=== PATIENT | female | born 1935 | race Asian ===

== ENCOUNTER → 2017-01-14 | Outpatient (CLI) | payer MEDICARE, MEDICAID | END | disposition home or self-care (01) | LOC: RADPV 14:22 | PROVIDERS: ATTEND Internal Medicine Cardiovascular Disease | DX: I08.0 Rheumatic disorders of both mitral and aortic valves (principal) | CPT/HCPCS: 93306 ==

== ENCOUNTER 2017-01-28 05:50 | Day surgery (SDC) | payer MEDICARE, MEDICAID ==
[~2017-01-28] VITALS: Ht 154.9 cm; Wt 54.5 kg
[~2017-01-28 05:50] MED LIST: INSLAN SQ; PANT40TA25 GT; SODIUM CHLORIDE 0.9% 1,000 ML IV ONE
[2017-01-28] MEDS ORDERED: METOCLOPRAMIDE HCL 5 MG/ML 2 ML VIAL IVP ONE (05:51)
[2017-01-28] MEDS ORDERED: PROPOFOL 1% 20 ML VIAL IVP ONE (05:51)
[2017-01-28] MEDS ORDERED: NEOSTIGMINE METHYLSULFATE 1 MG/ML 10 ML VIAL IVP ONE (05:51)
[2017-01-28] MEDS ORDERED: LIDOCAINE HCL/PF 2% 5 ML VIAL INJ ONE (05:51)
[2017-01-28] MEDS ORDERED: SODIUM CHLORIDE 0.9% 1,000 ML IV ONE (06:02)
[2017-01-28 06:32] LABS: GLUCOSE,POINT OF CARE 162 MG/DL (70-110)
[2017-01-28] MEDS ORDERED: FentaNYL CITRATE-PF 100 MCG/2 ML VIAL IVP PRN (07:45)
[2017-01-28] MEDS ORDERED: OXYGEN THERAPY IH SCH (08:00)
== END 2017-01-28 09:05 | disposition home or self-care (01) ==
LOC: SURGERY 05:50
PROVIDERS: ATTEND Specialist
DX: K91.89 Other postprocedural complications and disorders of digestive system (principal); D64.9 Anemia, unspecified; E78.5 Hyperlipidemia, unspecified; E11.9 Type 2 diabetes mellitus without complications; I10 Essential (primary) hypertension; M54.9 Dorsalgia, unspecified; Z79.4 Long term (current) use of insulin; Z90.3 Acquired absence of stomach [part of]
CPT/HCPCS: 43249; 82962; 93005; J2704; J2765; J3490; J7030

== ENCOUNTER 2017-02-11 05:32 | Day surgery (SDC) | payer MEDICARE, MEDICAID ==
[~2017-02-11] VITALS: Ht 152.4 cm; Wt 55.0 kg
[~2017-02-11 05:32] MED LIST changes: -SODIUM CHLORIDE 0.9% 1,000 ML IV ONE
[2017-02-11] MEDS ORDERED: SODIUM CHLORIDE 0.9% 1,000 ML IV ONE ×2 (05:41→06:00)
[2017-02-11 09:20] LABS: GLUCOSE,POINT OF CARE 126 MG/DL (70-110)
[2017-02-11] MEDS ORDERED: ONDANSETRON HCL 4 MG/2 ML VIAL IVP ONE (12:00)
[2017-02-11] MEDS ORDERED: EPHEDrine SULFATE 50 MG/ML VIAL IM ONE (12:00)
[2017-02-11] MEDS ORDERED: PROPOFOL 1% 20 ML VIAL IVP ONE (12:00)
[2017-02-11] MEDS ORDERED: LIDOCAINE HCL/PF 2% 5 ML VIAL INJ ONE (12:00)
[2017-02-11] MEDS ORDERED: METOCLOPRAMIDE HCL 5 MG/ML 2 ML VIAL IVP ONE (12:00)
== END 2017-02-11 08:55 | disposition home or self-care (01) ==
LOC: SURGERY 05:32
PROVIDERS: ATTEND Specialist
DX: K91.89 Other postprocedural complications and disorders of digestive system (principal); I10 Essential (primary) hypertension; D64.9 Anemia, unspecified; E11.9 Type 2 diabetes mellitus without complications; E78.00 Pure hypercholesterolemia, unspecified; Z90.3 Acquired absence of stomach [part of]; Z98.890 Other specified postprocedural states; Z87.19 Personal history of other diseases of the digestive system; Y83.8 Other surgical procedures as the cause of abnormal reaction of the patient, or of later complication, without mention of misadventure at the time of the procedure
CPT/HCPCS: 43220; 82962; J2405; J2704; J2765; J3490 ×2; J7030

== ENCOUNTER 2017-03-11 05:30 | Day surgery (SDC) | payer MEDICARE, MEDICAID ==
[~2017-03-11] VITALS: Ht 152.4 cm; Wt 55.0 kg
[2017-03-11] MEDS ORDERED: SODIUM CHLORIDE 0.9% 1,000 ML IV ONE ×2 (05:41→06:00)
[2017-03-11 06:32] LABS: GLUCOSE,POINT OF CARE 152 MG/DL (70-110)
[2017-03-11] MEDS ORDERED: METOCLOPRAMIDE HCL 5 MG/ML 2 ML VIAL IVP ONE (12:00)
[2017-03-11] MEDS ORDERED: PROPOFOL 1% 20 ML VIAL IVP ONE (12:00)
[2017-03-11] MEDS ORDERED: LIDOCAINE HCL/PF 2% 5 ML VIAL INJ ONE (12:00)
[2017-03-11] MEDS ORDERED: ONDANSETRON HCL 4 MG/2 ML VIAL IVP ONE (12:00)
[2017-03-11] MEDS ORDERED: GLYCOPYRROLATE 0.2 MG/ML VIAL IVP ONE (12:00)
== END 2017-03-11 08:55 | disposition home or self-care (01) ==
LOC: SURGERY 05:30
PROVIDERS: ATTEND Specialist
DX: K22.2 Esophageal obstruction (principal); E11.9 Type 2 diabetes mellitus without complications; I10 Essential (primary) hypertension; E78.5 Hyperlipidemia, unspecified; D64.9 Anemia, unspecified; Z98.0 Intestinal bypass and anastomosis status; Z98.890 Other specified postprocedural states
CPT/HCPCS: 43249; 82962; J2405; J2704; J2765; J3490 ×2; J7030